=== PATIENT | male | born 1985 | race Caucasian/White ===

== ENCOUNTER 2024-04-01 15:58 | Emergency (ER) | payer MEDICARE, OTHER ==
--- NOTE | 2024-04-01 16:10 | ED ---
Wound/Laceration HPI - General Chief Complaint: Wound/Laceration Stated Complaint: L Thumb Laceration Time Seen by Provider: 04/01/24 16:10 Source: patient, family, RN notes reviewed Mode of arrival: ambulatory Limitations: no limitations - History of Present Illness Initial Comments: 38-year-old male with a history of autism presents emergency department with a laceration to his left thumb. He reported the patient was outside using power hedge tremors and accidentally cut his left thumb. Patient currently is denying pain and states that he is a high pain tolerance. Mom at bedside states that patient's last vaccination was in November 2023. He denies other injuries at the time of this event. No other acute complaints at this time. - Related Data Allergies Allergy/AdvReac Type Severity Reaction Status Date / Time No Known Allergies Allergy Verified 04/01/24 16:02 Review of Systems ROS Statement: Those systems with pertinent positive or pertinent negative responses have been documented in the HPI. ROS Other: All systems not noted in ROS Statement are negative. Past Medical History Past Medical History: No Reported History Past Surgical History: Orthopedic Surgery Smoking Status: Never smoker Past Alcohol Use History: None Reported Past Drug Use History: None Reported General Exam Limitations: no limitations General appearance: alert, in no apparent distress Head exam: Present: atraumatic, normocephalic, normal inspection Eye exam: Present: normal appearance, PERRL, EOMI. Absent: scleral icterus, conjunctival injection, periorbital swelling ENT exam: Present: normal exam, mucous membranes moist Neck exam: Present: normal inspection. Absent: tenderness, meningismus, lymphadenopathy Respiratory exam: Present: normal lung sounds bilaterally. Absent: respiratory distress, wheezes, rales, rhonchi, stridor Cardiovascular Exam: Present: regular rate, normal rhythm, normal heart sounds. Absent: systolic murmur, diastolic murmur, rubs, gallop, clicks GI/Abdominal exam: Present: soft, normal bowel sounds. Absent: distended, tenderness, guarding, rebound, rigid Left Hand Wrist exam: Present: tenderness, deformity (first digit left hand). Absent: full ROM Vascular: Present: normal capillary refill (decreased), radial pulse (2+). Absent: vascular compromise Back exam: Present: normal inspection Neurological exam: Present: alert, oriented X3, CN II-XII intact Skin exam: Present: warm, dry, intact, normal color. Absent: rash Course Vital Signs 04/01/24 16:00 Temperature 99.2 F Pulse Rate 105 H Respiratory 18 Rate Blood Pressure 198/114 O2 Sat by Pulse 100 Oximetry Procedures - Nerve Block Consent Obtained: verbal consent Local Anesthetic Used: Lidocaine 1% Side: left Nerve Blocks: digital Patient Tolerated Procedure: well, no complications Medical Decision Making - Medical Decision Making Was pt. sent in by a medical professional or institution (, PA, [employer] OPERATOR, urgent care, hospital, or group home...) When possible be specific @ -No Did you speak to anyone other than the patient for history (EMS, parent, family, police, friend...)? What history was obtained from this source @ -No Did you review nursing and triage notes (agree or disagree)? Why? @ -I reviewed and agree with nursing and triage notes Were old charts reviewed (outside hosp., previous admission, EMS record, old EKG, old radiological studies, urgent care reports/EKG's, group home records)? Report findings @ -No old charts were reviewed Differential Diagnosis (chest pain, altered mental status, abdominal pain women, abdominal pain men, vaginal bleeding, weakness, fever, dyspnea, syncope, headache, dizziness, GI bleed, back pain, seizure, CVA, palpatations, mental health, musculoskeletal)? @ -Differential Musculoskeletal Muscular strain, contusion, ligament sprain, fracture, arthritis, septic arthritis, bursitis, cellulitis, muscle spasm, nerve compression, DVT, arterial occlusion, herpes zoster, electrolyte abnormality, tumor.... This is not meant to be in all inclusive list EKG interpreted by me (3pts min.). @ -none X-rays interpreted by me (1pt min.). @ -X-ray of the left thumb reveals soft tissue laceration of the dista left thumb reveals a soft tissue laceration of the distal interphalangeal joint space with some linear calcific type density, possible avulsion and or foreign body. CT interpreted by me (1pt min.). @ -None done U/S interpreted by me (1pt. min.). @ -None done What testing was considered but not performed or refused? (CT, X-rays, U/S, labs)? Why? @ -None What meds were considered but not given or refused? Why? @ -None Did you discuss the management of the patient with other professionals (professionals i.e. , GO, [employer] OPERATOR, lab, RT, psych nurse, social services assistant, contract engineer, teacher, navigation officer, casework manager)? Give summary @ -I spoke with [facility]level provider from [facility] in regard to the patient's case and is recommended that patient be followed up outpatient however there is no hand surgeon with their group. I spoke with Dr. Momin, in regard to the patient's case and is recommend the patient be transferred to a facility with orthopedic trauma in house due to their groups hand specialist being unable to care for the patient. [facility] accepted the patient as an ER to ER transfer for further evaluation of soft tissue laceration of the distal interphalangeal joint space. It is recommended that the area be thoroughly cleansed with sterile water and placed in a simple gauze wrap, it is advised that there are no sutures placed at this time as evaluation will be completed at transfer facility. Was smoking cessation discussed for >3mins.? @ -No Was critical care preformed (if so, how long)? @ -No Were there social determinants of health that impacted care today? How? (Homelessness, low income, unemployed, alcoholism, drug addiction, transportation, low edu. Level, literacy, decrease access to med. care, [facility], rehab)? @ -No Was there de-escalation of care discussed even if they declined (Discuss DNR or withdrawal of care, Hospice)? DNR status @ -No What co-morbidities impacted this encounter? (DM, HTN, Smoking, COPD, CAD, Cancer, CVA, ARF, Chemo, Hep., AIDS, mental health diagnosis, sleep apnea, morbid obesity)? @ -None Was patient admitted / discharged? Hospital course, mention meds given and route, prescriptions, significant lab abnormalities, going to OR and other pertinent info. @ -Transferred. 38-year-old male with laceration to the left thumb. On examination patient has decreased and flexion and extension of the thumb with a obvious deformity and pulmonary involvement, patient's arrival to [facility] and will be transferred [facility] for further evaluation of the injury. Area was thoroughly irrigated with sterile water and gauze was applied over top. Additionally, following was anesthetized with 1% lidocaine via nerve block. Case discussed with attending Dr. Robles.patient is traveling via private vehicle to [facility]. Undiagnosed new problem with uncertain prognosis? @ -No Drug Therapy requiring intensive monitoring for toxicity (Heparin, Nitro, Insulin, Cardizem)? @ -No Were any procedures done? @ -No Diagnosis/symptom? @ -Interphalangeal joint soft tissue laceration, open fracture Acute, or Chronic, or Acute on Chronic? @ -Acute Uncomplicated (without systemic symptoms) or Complicated (systemic symptoms)? @ -complicated Side effects of treatment? @ -No Exacerbation, Progression, or Severe Exacerbation? @ -No Poses a threat to life or bodily function? How? (Chest pain, [place], [place], pneumonia, PE, COPD, DKA, ARF, appy, cholecystitis, CVA, Diverticulitis, Homicidal, Suicidal, threat to staff... and all critical care pts) @ -No Disposition Clinical Impression: Laceration Disposition: OTHER INSTITUTION NOT DEFINED Referrals: Michelle Diop MD [Primary Care Provider] - 1-2 days - Out of Hospital Transfer - Req. Specs Out of Hospital Transfer - Requested Specifics: Other Emergency Center ([facility])
[2024-04-01] MEDS: LIDOCAINE 1% INJ 10MG/ML (20 ML MDV) SQ ONE (16:49)
--- NOTE | 2024-04-01 16:56 | XR ---
EXAMINATION TYPE: XR finger LT DATE OF EXAM: 04/01/2024 COMPARISON: None HISTORY: Laceration thumb TECHNIQUE: 3 view left thumb FINDINGS: Soft tissue injury is noted at the dorsal distal interphalangeal joint space. On the obliqu e view there is a linear calcific type density just above the proximal phalanx distal portion joint s pace. Small avulsion should be considered. No additional areas suspicious for fracture or foreign body. Remaining joint spaces appear intact. IMPRESSION: 1. Soft tissue laceration distal interphalangeal joint space. Some linear calcific type density is p resent. Avulsion and/or foreign body may be present.
[2024-04-01 19:24] VITALS: BP 158/89; PULSE 94; RESP 20; TEMP 99
== END 2024-04-01 19:23 | disposition other institution (70) ==
LOC: EC 15:58
DX: S61.012A Laceration without foreign body of left thumb without damage to nail, initial encounter
CPT/HCPCS: 64450; 96365; 99284